=== PATIENT | female | born 1965 | race Caucasian/White ===

== ENCOUNTER 2016-09-01 16:46 | Emergency (ER) | payer MEDICAID ==
[2016-09-01 18:01] VITALS: RESP 16; TEMP 98.2; O2SAT 96
[2016-09-01] MEDS ORDERED: HYDROmorphONE/DILAUDID 1 MG/ML SYR IVP ONE (18:21)
[2016-09-01] MEDS ORDERED: NS 1,000 ML IV ONE (18:21)
[2016-09-01] MEDS ORDERED: ONDANSETRON 4 MG/2 ML VIAL IVP ONE (18:21)
--- NOTE | 2016-09-01 18:24 | UCPHY ---
H & P Patient Type: Established Chief Complaint Nursing Narrative: low back pain thursday morning now worse. bending makes worse but not general movements. Was sick the past few days prior. No changes in urination. Time Seen by Provider: 09/01/16 18:14 HPI/ROS: CHIEF COMPLAINT: Low back pain HISTORY OF PRESENT ILLNESS: Patient is a 50-year-old female who comes to the Urgent Care complaining of bilateral CVA soreness. She denies any recent trauma. She states that 5 in 6 days ago she had a fever and body aches that resolved after 2 days. She did have a flu shot this year. 3 days later which was Thursday she began having pain in her low back. It hurts worse with movement. She thought maybe it was from doing yoga the day before. It did not improve with stretching. She stood up to watch the football games because it hurt her to sit in 1 spot. She has not had any urinary frequency or dysuria. She is currently menstruating but states that this does not feel like menstrual cramping. She does not have any immuno compromising conditions. No history of cancer. No bowel or bladder abnormalities, no weakness, numbness or paresthesias. REVIEW OF SYSTEMS: Constitutional: denies: chills, fever, recent illness, recent injury EENTM: Mild sinus congestion, sore throat now resolved, denies: blurred vision , double vision Respiratory: Dry cough, no shortness of breath Cardiac: denies: chest pain, irregular heart rate, lightheadedness, palpitations Gastrointestinal/Abdominal: denies: abdominal pain, diarrhea, nausea, vomiting, blood streaked stools Genitourinary: See HPI Musculoskeletal: See HPI Skin: denies: lesions, rash, jaundice, bruising Neurological: denies: headache, numbness, paresthesia, tingling, dizziness, weakness Hematologic/Lymphatic: denies: blood clots, easy bleeding, easy bruising Immunologic/allergic: denies: HIV/AIDS, transplant EXAM: GENERAL: Well-appearing, well-nourished and in no acute distress. HEAD: Atraumatic, normocephalic. EYES: Pupils equal round and reactive to light, extraocular movements intact, sclera anicteric, conjunctiva are normal. ENT: TMs normal, nares patent, oropharynx clear without exudates. Moist mucous membranes. NECK: Normal range of motion, supple without lymphadenopathy or JVD. LUNGS: Breath sounds clear to auscultation bilaterally and equal. No wheezes rales or rhonchi. HEART: Regular rate and rhythm without murmurs, rubs or gallops. ABDOMEN: Soft, nontender, normoactive bowel sounds. No guarding, no rebound. No masses appreciated. BACK: Mild bilateral CVA tenderness, no tenderness with percussion, no spinal tenderness, step-offs or deformities EXTREMITIES: Normal range of motion, no pitting or edema. No clubbing or cyanosis. NEUROLOGICAL: Cranial nerves II through XII grossly intact. Normal speech, normal gait. 5/5 strength, normal movement in all extremities, normal sensation PSYCH: Normal mood, normal affect. SKIN: Warm, dry, normal turgor, no visible rashes or lesions. Source: Patient - Personal History LMP (Females 10-55): Now - Medical/Surgical History Hx Asthma: No Hx Chronic Respiratory Disease: No Hx Diabetes: No Hx Cardiac Disease: No Hx Renal Disease: No Hx Cirrhosis: No Hx Alcoholism: No Other PMH: PCP yamilet. Tetanus UTD. Flu vacc UTD. Surg ortho - Family History Significant Family History: Hypertension - Social History Smoking Status: Never smoked Alcohol Use: None Drug Use: None Constitutional: Initial Vital Signs Temperature (C) 36.8 C 09/01/16 17:56 Heart Rate 60 09/01/16 17:56 Respiratory Rate 16 09/01/16 17:56 Blood Pressure 153/90 H 09/01/16 17:56 O2 Sat (%) 96 09/01/16 17:56 O2 Delivery Mode Room Air Allergies/Adverse Reactions: No Known Allergies Allergy (Verified 09/01/16 18:02) Home Medications: Medication Instructions Recorded Escitalopram Oxalate 09/01/16 Hydrocodone/APAP 5/325 [[place]ris[place] 1 - 2 tab PO Q4H PRN #20 tab 09/01/16 5/325 (RX)] LAMOTRIGINE 09/01/16 Medical Decision Making - Diagnostics Imaging: Results: CT scan of the negative was obtained. The results of the study are negative. The study was read by Dr. Mckeon. I viewed the images myself on the PACS system. ED Course/Re-evaluation: We discussed the patient's lab results. She is coughing. She may have simply myalgias from a viral infection. This is what she was thinking initially. Urinalysis is unremarkable other than 1+ blood which is likely from her menses. Her lipase is high for unexplained reasons. She does not drink heavily. She does drink almost daily though. She has not had any known gallbladder problems. She denies epigastric or right upper quadrant pain. I will obtain a CT scan for further evaluation. 8:25 p.m. we discussed the results of the CT scan. The patient is relieved. We discussed fever and pain control and hydration and cetera. We discussed indications for returning. She understands the no definitive source of her pain was found but that this is likely viral syndrome. She does have a mild dry cough and sinus congestion. Additional verbal discharge instructions given. Differential Diagnosis: Partial list of the Differential diagnosis considered include but were not limited to; viral syndrome, kidney stone, urinary tract infection, ovarian cyst and although unlikely based on the history and physical exam, I also considered , diverticulitis, appendicitis, biliary disease, pancreatitis, pneumonia. I discussed these differential diagnoses and the plan with the patient as well as the usual and expected course. The patient understands that the diagnosis is provisional and that in medicine we are not always correct and that further workup is often warranted. Usual and customary warnings were given. All of the patient's questions were answered. The patient was instructed to return to the emergency department should the symptoms at all worsen or return, otherwise to followup with the physician as we discussed. - Data Points Laboratory Results: Laboratory Results 09/01/16 18:48 09/01/16 18:48 09/01/16 09/01/16 18:48 18:25 WBC 6.11 10^3/uL (3.80-9.50) RBC 4.15 L 10^6/uL (4.18-5.33) Hgb 11.8 L g/dL (12.6-16.3) Hct 35.8 L % (38.0-47.0) MCV 86.3 fL (81.5-99.8) MCH 28.4 pg (27.9-34.1) MCHC 33.0 g/dL (32.4-36.7) RDW 14.9 % (11.5-15.2) Plt Count 384 10^3/uL (150-400) MPV 10.3 fL (8.7-11.7) Neut % (Auto) 46.7 % (39.3-74.2) Lymph % (Auto) 42.1 % (15.0-45.0) [place] % (Auto) 8.0 % (4.5-13.0) Eos % (Auto) 2.3 % (0.6-7.6) Baso % (Auto) 0.7 % (0.3-1.7) Nucleat RBC Rel Count 0.0 % (0.0-0.2) Absolute Neuts (auto) 2.86 10^3/uL (1.70-6.50) Absolute Lymphs (auto) 2.57 10^3/uL (1.00-3.00) Absolute Monos (auto) 0.49 10^3/uL (0.30-0.80) Absolute Eos (auto) 0.14 10^3/uL (0.03-0.40) Absolute Basos (auto) 0.04 10^3/uL (0.02-0.10) Absolute Nucleated RBC 0.00 10^3/uL (0-0.01) Immature Gran % 0.2 % (0.0-1.1) Immature Gran # 0.01 10^3/uL (0.00-0.10) Sodium 140 mEq/L (134-144) Potassium 4.1 mEq/L (3.5-5.2) Chloride 104 mEq/L (97-110) Carbon Dioxide 27 mEq/l (22-31) Anion Gap 9 mEq/L (8-16) BUN 7 mg/dL (7-23) Creatinine 0.8 mg/dL (0.6-1.0) Estimated GFR > 60 Glucose 91 mg/dL (70-100) Calcium 9.0 mg/dL (8.5-10.4) Total Bilirubin 0.6 mg/dL (0.1-1.4) Conjugated Bilirubin 0.1 mg/dL (0.0-0.5) Unconjugated Bilirubin 0.5 mg/dL (0.0-1.1) AST 15 IU/L (14-46) ALT 18 IU/L (9-52) Alkaline Phosphatase 50 IU/L (38-126) Total Protein 6.7 g/dL (6.3-8.2) Albumin 3.6 g/dL (3.5-5.0) Lipase 421.0 H IU/L (23-300) Beta HCG, Qual NEGATIVE Urine Color YELLOW Urine Appearance CLEAR Urine pH 6.0 (5.0-7.5) Ur Specific [place] 1.015 (1.002-1.030) Urine Protein NEGATIVE (NEGATIVE) Urine Ketones NEGATIVE (NEGATIVE) Urine Blood 1+ H (NEGATIVE) Urine Nitrate NEGATIVE (NEGATIVE) Urine Bilirubin NEGATIVE (NEGATIVE) Urine Urobilinogen 0.2 EU (0.2-1.0) Ur Leukocyte Esterase NEGATIVE (NEGATIVE) Urine RBC 0-1 /hpf (0-3) Urine WBC 0-1 /hpf (0-3) Ur Epithelial Cells NONE SEEN /lpf (NONE-1+) Urine Mucus 1+ /lpf (NONE-1+) Ur Culture Indicated? NOT INDICATED (NI) Urine Glucose NEGATIVE (NEGATIVE) Medications Given: Discontinued Medications Acetaminophen/Hydrocodone Bitart ([place] 5/325mg Prepack#6) 1 btl TAKEHOME EDNOW ONE Stop: 09/01/16 20:28 Last Admin: 09/01/16 21:30 Dose: 1 btl Hydromorphone HCl (Dilaudid) 1 mg IVP EDNOW ONE Stop: 09/01/16 18:22 Last Admin: 09/01/16 19:26 Dose: 1 mg Sodium Chloride (Ns) 1,000 mls @ 0 mls/hr IV ONCE ONE PRN Reason: Wide Open Stop: 09/01/16 18:22 Last Admin: 09/01/16 19:02 Dose: 1,000 mls Ondansetron HCl (Zofran) 4 mg IVP EDNOW ONE Stop: 09/01/16 18:22 Last Admin: 09/01/16 19:25 Dose: 4 mg Departure - Departure Disposition: Home, Routine, Self-Care Clinical Impression: Bilateral flank pain Condition: Fair Instructions: Flank Pain (ED) Referrals: Maria Dolores English MD [Primary Care Provider] - As per Instructions Prescriptions: Hydrocodone/APAP 5/325 [[place] 5/325 (RX)] 1 - 2 tab PO Q4H PRN #20 tab PRN Reason: Pain, Moderate - PQRS PQRS Measurement: Not applicable
[2016-09-01 18:40] LABS: COLOR YELLOW; LEUKOCYTE ESTERASE,URINE NEGATIVE (NEGATIVE); NITRITE,URINE NEGATIVE (NEGATIVE)
[2016-09-01 18:57] LABS: % IMMATURE GRANULYOCYTES 0.2 % (0.0-1.1); ABSOLUTE IMMATURE GRANULOCYTES 0.01 10^3/uL (0.00-0.10); ADD DIFF? NO; ADD MORPH? NO; ADD SCAN? NO; ATYPICAL LYMPHOCYTE FLAG 80 (0-99); FRAGMENT RBC FLAG 0 (0-99); HEMATOCRIT 35.8 % (38.0-47.0); HEMOGLOBIN 11.8 g/dL (12.6-16.3); LEFT SHIFT FLG 0 (0-99); LIPEMIA HEMOLYSIS FLAG 80 (0-99); MEAN CELL HEMOGLOBIN 28.4 pg (27.9-34.1); MEAN CELL VOLUME 86.3 fL (81.5-99.8); MEAN PLATELET VOLUME 10.3 fL (8.7-11.7); PLATELET CLUMPS FLAG 10 (0-99); PLATELET COUNT 384 10^3/uL (150-400); RED BLOOD CELL COUNT 4.15 10^6/uL (4.18-5.33); RED CELL DISTRIBUTION WIDTH 14.9 % (11.5-15.2)
[2016-09-01 19:17] LABS: ALANINE AMINOTRANSFERASE 18 IU/L (9-52); ALBUMIN 3.6 g/dL (3.5-5.0); ALKALINE PHOSPHATASE 50 IU/L (38-126); ANION GAP 9 mEq/L (8-16); ASPARTATE AMINOTRANSFERASE 15 IU/L (14-46); BILIRUBIN,TOTAL 0.6 mg/dL (0.1-1.4); BILIRUBIN-CONJUGATED 0.1 mg/dL (0.0-0.5); BILIRUBIN-UNCONJUGATED 0.5 mg/dL (0.0-1.1); CARBON DIOXIDE 27 mEq/l (22-31); CHLORIDE 104 mEq/L (97-110); CREATININE 0.8 mg/dL (0.6-1.0); GLOMERULAR FILTRATION RATE > 60; GLUCOSE 91 mg/dL (70-100); POTASSIUM 4.1 mEq/L (3.5-5.2); SODIUM 140 mEq/L (134-144); TOTAL PROTEIN 6.7 g/dL (6.3-8.2)
[2016-09-01 19:22] LABS: RBC,URINE 0-1 /hpf (0-3); WBC,URINE 0-1 /hpf (0-3)
[2016-09-01 19:23] LABS: MUCUS 1+ /lpf (NONE-1+)
[2016-09-01] MEDS ORDERED: IOPAMIDOL (ISOVUE-300) 100 ML BTL IV ONE (19:32)
[2016-09-01] MEDS ORDERED: HYDROCOD/APAP 5/325 PREPACK#6 BTL TAKEHOME ONE (20:27)
--- NOTE | 2016-09-01 20:38 | CT ---
CT Scan of the Abdomen and Pelvis (With Contrast) September 01, 2016 at 1947 hours Indication: Abdomen pain. Technique: 90 mL of Isovue-300 were given intravenously by machine power injection. Multidetector h elical CT imaging was performed from the diaphragm to the symphysis pubis. Dose reduction techniques were utilized. Findings ABDOMEN: The lung bases are clear. No focal liver lesion. The gallbladder is unremarkable. The pa ncreas is unremarkable. The spleen is unremarkable. Both adrenal glands are normal in size and appe arance. Both kidneys enhance normally, without evidence for a mass or hydronephrosis. Pelvis: Prominent stool is seen in the right side of the colon, and there is fecalization of stool i n the distal ileum. The appendix is visualized and normal in appearance. No evidence for diverticul itis. Degenerative disk and degenerative joint disease is seen at L5-S1. No evidence for a bladder calculus. No significant free fluid in the pelvis. No evidence for free intraperitoneal air. Impression: Moderate constipation. No CT findings for appendicitis or diverticulitis. Degenerative disk and degenerative joint disease L5-S1. Results discussed with Dr. Frederick Rangel.
[2016-09-01 22:19] VITALS: BP 139/91; PULSE 65
== END 2016-09-01 21:30 | disposition home or self-care (01) ==
LOC: CED 16:46
DX: R10.32 Left lower quadrant pain (principal); R10.31 Right lower quadrant pain
CPT/HCPCS: 74177-PO; 80048-PO; 80076-PO; 81003-PO; 81015-PO; 83690-PO; 84703-PO; 85025-PO; 96361-PO; 96374-PO; 96375-PO; 99215-PO; G0463-PO; J1170; J2405; Q9967